=== PATIENT | female | born 1960 | race Caucasian/White ===

== ENCOUNTER → 2022-07-04 | Outpatient (CLI) | payer BC, SELFPAY ==
--- NOTE | 2022-07-04 07:50 | MRI_ITS ---
EXAM: MR LEFT LOWER EXTREMITY WITHOUT INTRAVENOUS CONTRAST, FOOT CLINICAL INDICATION: FOOT PAIN, LUMP IN ARCH OF FOOT MARKED WITH BEAD, C/O NUMBNESS AND TINGLING IN 4TH AND 5TH TOES TECHNIQUE: Multiplanar and multisequence MR images of the left foot without intravenous contrast. COMPARISON: No relevant prior studies available. FINDINGS: LIGAMENTS: MEDIAL COLLATERAL: Unremarkable. Intact. LATERAL COLLATERAL: Unremarkable. Intact. LISFRANC: Unremarkable. Intact. TENDONS: FLEXOR: Unremarkable. Intact. EXTENSOR: Unremarkable. Intact. PERONEAL: Longitudinal split tear of the peroneus brevis tendon which reconstitutes by the anterolateral aspect of the calcaneus. TIBIALIS ANTERIOR: Unremarkable. Intact. TIBIALIS POSTERIOR: Unremarkable. Intact. MUSCLES: Unremarkable. No edema or myositis. FLUID: Unremarkable. No joint effusion. PLANTAR FASCIA: Unremarkable. Intact. BONES/JOINTS: Unremarkable. Normal forefoot alignment. No fracture. No bone marrow edema. No joint effusion. OTHER SOFT TISSUES: Unremarkable. MRI/Lower Ext/No Jt/w/o IMPRESSION: Longitudinal split tear of the peroneus brevis tendon which reconstitutes by the anterolateral aspect of the calcaneus. No specific pathology in the area of the arch and fourth and fifth digits to explain the clinical presentations. Electronically Signed: Kam Samuel MD at 16:17 EDT ,
== END | disposition home or self-care (01) ==
PROVIDERS: Referring Provider Podiatrist; Visit Provider Podiatrist
DX: M79.672 Pain in left foot (principal)
CPT/HCPCS: 73718